=== PATIENT | male | born 1970 | race Two or more races ===

== ENCOUNTER 2017-01-16 19:07 | Emergency (ER) | payer MEDICAID ==
[~2017-01-16] VITALS: Ht 195.6 cm; Wt 129.3 kg
[~2017-01-16 19:07] MED LIST: ASPI81TA2 PO; FENO200C PO; METF500T4 PO; NEBI10TA2 PO; VALS80TA26 PO
[2017-01-16 19:32] VITALS: BP 171/100
== END 2017-01-16 20:51 | disposition home or self-care (01) ==
LOC: ER 19:08
DX: S91.332A Puncture wound without foreign body, left foot, initial encounter (principal); I10 Essential (primary) hypertension; E11.9 Type 2 diabetes mellitus without complications; Z79.82 Long term (current) use of aspirin; Z79.84 Long term (current) use of oral hypoglycemic drugs; W22.8XXA Striking against or struck by other objects, initial encounter; Y93.89 Activity, other specified; Y92.89 Other specified places as the place of occurrence of the external cause; Y99.8 Other external cause status
CPT/HCPCS: 73630; 99284; A4606; Z7610

== ENCOUNTER 2017-03-27 23:58 | Emergency (ER) | payer MEDICAID ==
[~2017-03-27] VITALS: Ht 185.4 cm; Wt 113.4 kg
[~2017-03-27 23:58] MED LIST changes: +ASPI-1169 PO; -ASPI81TA2 PO
[2017-03-28] MEDS ORDERED: ADENOSINE 6 MG/2 ML VIAL ONE (00:04)
--- NOTE | 2017-03-28 00:10 | NUR ---
TO BED 1 AMBULATORY C/O "MY HEART IS RACING". PT AAOX4 NO ACUTE DISTRESS NOTED, RESP EVEN AND UNLABORED. PLACE PT ON CARDIAC MONITORING HR-160'S, CONTINUOUS POX. ER MD AT BEDSIDE TO EVAL PT WITH ORDERS RECEIVED. SKIN WARM NONDIAPHORETIC. PT DENIES PAIN OR DISCOMFORT AT THIS TIME.
--- NOTE | 2017-03-28 00:10 | NUR ---
STARTED SL 16G TO [facility], BLOOD DRAWN AND SENT TO LAB.
--- NOTE | 2017-03-28 00:17 | NUR ---
PT SELF CONVERTED TO NSR ON THE . ER AWARE.
[2017-03-28 00:19] LABS: BASOPHILS # (AUTO) 0.1 /CMM (0.0-0.2); BASOPHILS % (AUTO) 0.5 % (0.0-2.0); EOSINOPHILS # (AUTO) 0.3 /CMM (0.0-0.7); EOSINOPHILS % (AUTO) 2.6 % (0.0-6.0); HEMATOCRIT 47 % (39-51); HEMOGLOBIN 15.6 g/dL (13.5-17.5); LYMPHOCYTES # (AUTO) 3.6 /CMM (0.8-4.8); LYMPHOCYTES % (AUTO) 35.3 % (20.0-44.0); MEAN CORPUSCULAR HEMOGLOBIN 29 PG (26.0-33.0); MEAN CORPUSCULAR HGB CONC 33 g/dl (31.0-36.0); MEAN CORPUSCULAR VOLUME 87 fL (80-96); MONOCYTES # (AUTO) 0.6 /CMM (0.1-1.30); MONOCYTES % (AUTO) 6.2 % (2.0-12.0); NEUTROPHILS # (AUTO) 5.7 /CMM (1.8-8.9); NEUTROPHILS % (AUTO) 55.4 % (43.0-81.0); PLATELET COUNT (AUTO) 257 /CMM (150-450); RDW COEFFICIENT OF VARIATION 12.1 (11.5-15.0); RED BLOOD CELL COUNT(AUTO) 5.37 MIL/uL (4.5-6.0); WHITE BLOOD COUNT (AUTO) 10.3 K/uL (4.3-11.0)
[2017-03-28 00:30] LABS: CALCIUM, SERUM 9.5 mg/dL (8.5-10.1)
--- NOTE | 2017-03-28 00:46 | NUR ---
pt resting quietly no acute distress noted, resp even and unlabored. call light within reach. pending disposition.
--- NOTE | 2017-03-28 01:23 | NUR ---
er md at bedside talking to pt regarding lab results.
[2017-03-28 01:30] VITALS: BP 153/91
--- NOTE | 2017-03-28 01:38 | NUR ---
IV removed. Catheter intact and site benign. Pressure and 4x4 applied to site. No bleeding noted. Patient discharged to home in stable condition. Written and verbal after care instructions given. Patient verbalizes understanding of instruction. ambulatory with a steady gait
== END 2017-03-28 01:39 | disposition home or self-care (01) ==
LOC: ER 03-28 00:03
DX: I47.1 Supraventricular tachycardia (principal); E11.9 Type 2 diabetes mellitus without complications; I10 Essential (primary) hypertension; F10.10 Alcohol abuse, uncomplicated; F17.200 Nicotine dependence, unspecified, uncomplicated; Z79.82 Long term (current) use of aspirin
CPT/HCPCS: 36415; 80048; 83735; 85025; 93005; 99285; A4606; Z7610; J0153

== ENCOUNTER 2017-05-15 23:00 | Emergency (ER) | payer MEDICAID ==
[~2017-05-15] VITALS: Ht 177.8 cm; Wt 133.8 kg
--- NOTE | 2017-05-15 23:01 | NUR ---
PT TO ER BED 5. PT BIB FAMILY, PT C/O CP AND PALPITATIONS X 20 MINUTES. PT SVT ON MONITOR AT 149 HR. PT PLACED IN GOWN AND ON CAUL PULLER. RESP EVEN UNLABORED/SKIN WARM AND DRY/DENIES N-V-D/AFEBRILE/AOX4. DR SPICER AT THE BEDSIDE FOPR EVAL. EMT AT BEDSIDE FOR EKG.
[2017-05-15] MEDS ORDERED: ADENOSINE 6 MG/2 ML VIAL ONE (23:08)
--- NOTE | 2017-05-15 23:12 | NUR ---
Adenosine administered lac iv#[address] vela at bedside. Pt converted to NSR.
--- NOTE | 2017-05-15 23:23 | NUR ---
LAB AT BEDSIDE TO DRAW.
[2017-05-15 23:29] LABS: BASOPHILS % (AUTO) 0.2 % (0.0-2.0); EOSINOPHILS # (AUTO) 0.2 /CMM (0.0-0.7); EOSINOPHILS % (AUTO) 2.2 % (0.0-6.0); HEMATOCRIT 40 % (39-51); LYMPHOCYTES # (AUTO) 2.4 /CMM (0.8-4.8); LYMPHOCYTES % (AUTO) 34.1 % (20.0-44.0); MEAN CORPUSCULAR HEMOGLOBIN 30 PG (26.0-33.0); MEAN CORPUSCULAR HGB CONC 35 g/dl (31.0-36.0); MEAN CORPUSCULAR VOLUME 87 fL (80-96); MONOCYTES # (AUTO) 0.3 /CMM (0.1-1.30); MONOCYTES % (AUTO) 4.8 % (2.0-12.0); NEUTROPHILS # (AUTO) 4.1 /CMM (1.8-8.9); NEUTROPHILS % (AUTO) 58.7 % (43.0-81.0); PLATELET COUNT (AUTO) 179 /CMM (150-450); RDW COEFFICIENT OF VARIATION 11.9 (11.5-15.0); RED BLOOD CELL COUNT(AUTO) 4.59 MIL/uL (4.5-6.0)
[2017-05-15] MEDS ORDERED: IV NS 0.9% 1,000 ML BAG IV ONE (23:30)
[2017-05-15] MEDS ORDERED: ADENOSINE 6 MG/2 ML VIAL IVP ONE (23:30)
--- NOTE | 2017-05-15 23:40 | NUR ---
XRAY AT BEDSIDE.
[2017-05-15 23:41] LABS: CALCIUM, SERUM 8.5 mg/dL (8.5-10.1); CARBON DIOXIDE 24 mmol/L (21-32); CHLORIDE 105 mmol/L (98-107); GLUCOSE 304 mg/dL (74-106); POTASSIUM 3.7 mmol/L (3.5-5.1); SODIUM SERUM 139 mmol/L (136-145); UREA NITROGEN, BLOOD 14 mg/dL (7-18)
[2017-05-15 23:46] LABS: INR 0.99 (0.87-1.13)
[2017-05-15 23:50] LABS: TROPONIN I < 0.017 ng/mL (0.00-0.056)
--- NOTE | 2017-05-16 00:10 | NUR ---
PT CONTINUES TO REMAIN STABLE IN NSR ON FOLDER MACHINE. HR 95.
--- NOTE | 2017-05-16 00:32 | NUR ---
IV removed. Catheter intact and site benign. Pressure and 4x4 applied to site. No bleeding noted. Patient discharged to home in stable condition. Written and verbal after care instructions given. Patient verbalizes understanding of instruction. Patient ambulatory with a steady gait.
[2017-05-16 00:33] VITALS: BP 141/90
== END 2017-05-16 00:34 | disposition home or self-care (01) ==
LOC: ER 23:08
DX: I47.1 Supraventricular tachycardia (principal); E11.9 Type 2 diabetes mellitus without complications; I10 Essential (primary) hypertension; Z79.82 Long term (current) use of aspirin
CPT/HCPCS: 36415; 71045-TC; 80048-TC; 84484-TC; 85025-TC; 85730-TC; A4606; J0153; Z7610

== ENCOUNTER 2017-10-20 02:26 | Emergency (ER) | payer MEDICAID ==
[~2017-10-20] VITALS: Ht 193 cm; Wt 117.9 kg
[~2017-10-20 02:26] MED LIST changes: -METF500T4 PO; +METF500T6 PO; -VALS80TA26 PO; +VALS80TA31 PO
--- NOTE | 2017-10-20 02:42 | NUR ---
XRAY AT BEDSIDE
--- NOTE | 2017-10-20 02:49 | NUR ---
PT AA/OX4 , ANXIOUS, COMPLAINING OF LT SIDED CHEST PAIN X3 HOURS. RADIATES TO BACK. PRESSURE TYPE OF SENSATION. 7/10 PAIN. NAUSEA PRESENT WITH NO VOMITING. SKINS PINK WARM AND DRY. NO S/S OF SOB. VSS. AWAITING MD EVAL/ ORDERS.
[2017-10-20] MEDS ORDERED: ASPIRIN EC 81 MG TABLET.DR PO ONE (02:58)
[2017-10-20] MEDS ORDERED: ASPIRIN 81 MG TAB.CHEW PO ONE (03:00)
[2017-10-20 03:01] LABS: HEMATOCRIT 40 % (39-51); HEMOGLOBIN 13.8 g/dL (13.5-17.5); MEAN CORPUSCULAR HEMOGLOBIN 31 PG (26.0-33.0); MEAN CORPUSCULAR HGB CONC 34 g/dl (31.0-36.0); MEAN CORPUSCULAR VOLUME 90 fL (80-96); MONOCYTES % (AUTO) 5.2 % (2.0-12.0); NEUTROPHILS % (AUTO) 54.2 % (43.0-81.0); PLATELET COUNT (AUTO) 214 /CMM (150-450); RDW COEFFICIENT OF VARIATION 12.3 (11.5-15.0); RED BLOOD CELL COUNT(AUTO) 4.46 MIL/uL (4.5-6.0); WHITE BLOOD COUNT (AUTO) 8.9 K/uL (4.3-11.0)
[2017-10-20 03:02] LABS: BASOPHILS % (AUTO) 0.7 % (0.0-2.0)
[2017-10-20 03:17] LABS: INR 0.96 (0.87-1.13)
[2017-10-20 03:36] LABS: CARBON DIOXIDE 26 mmol/L (21-32); CHLORIDE 101 mmol/L (98-107); CREATININE 1.1 mg/dL (0.6-1.3); GLUCOSE 237 mg/dL (74-106); POTASSIUM 3.8 mmol/L (3.5-5.1); SODIUM SERUM 138 mmol/L (136-145); UREA NITROGEN, BLOOD 19 mg/dL (7-18)
[2017-10-20 03:46] LABS: TROPONIN I < 0.017 ng/mL (0.00-0.056)
--- NOTE | 2017-10-20 04:00 | NUR ---
PT RESTING COMFORTABLY. NAD. VSS
[2017-10-20 04:40] VITALS: BP 112/85
--- NOTE | 2017-10-20 04:42 | NUR ---
Patient discharged to home in stable condition. Written and verbal after care instructions given. Patient verbalizes understanding of instruction. IV removed. Catheter intact and site benign. Pressure and 4x4 applied to site. No bleeding noted. PT AMBULATED WITH STEADY GAIT UPON DC.
== END 2017-10-20 04:41 | disposition home or self-care (01) ==
LOC: ER 02:29
DX: R00.2 Palpitations (principal); I10 Essential (primary) hypertension; E11.9 Type 2 diabetes mellitus without complications; Z98.890 Other specified postprocedural states; Z79.84 Long term (current) use of oral hypoglycemic drugs; Z79.82 Long term (current) use of aspirin; Z79.899 Other long term (current) drug therapy; Z86.79 Personal history of other diseases of the circulatory system
CPT/HCPCS: 36415; 71045; 80048; 84484; 85025; 85730; 93005; 99285; A4606; Z7610

== ENCOUNTER 2019-04-17 02:49 | Emergency (ER) | payer OTHER ==
[~2019-04-17] VITALS: Ht 175.3 cm; Wt 130.6 kg
[~2019-04-17 02:49] MED LIST changes: +METF-440 PO; -METF500T6 PO
--- NOTE | 2019-04-17 03:03 | NUR ---
pt came to er w/ c/o chest pain. pt states that he has been having this pain since 2x months. pain worsen last 2 days when lying down. aaox4. no sob. breathing evenly and unlabored. connected to surveillance system monitor.
[2019-04-17] MEDS ORDERED: MORPHINE SULFATE INJ 4 MG/ML DISP.SYRIN ONE ×2 (03:06→03:10)
--- NOTE | 2019-04-17 03:10 | NUR ---
seen and examined by
[2019-04-17 03:16] LABS: BASOPHILS # (AUTO) 0.1 /CMM (0.0-0.2); BASOPHILS % (AUTO) 0.6 % (0.0-2.0); EOSINOPHILS % (AUTO) 2.2 % (0.0-6.0); HEMATOCRIT 43 % (39-51); HEMOGLOBIN 14.8 g/dL (13.5-17.5); LYMPHOCYTES % (AUTO) 34.3 % (20.0-44.0); MEAN CORPUSCULAR HGB CONC 34 g/dl (31.0-36.0); MEAN CORPUSCULAR VOLUME 88 fL (80-96); MONOCYTES # (AUTO) 0.5 /CMM (0.1-1.30); MONOCYTES % (AUTO) 5.7 % (2.0-12.0); NEUTROPHILS % (AUTO) 57.2 % (43.0-81.0); PLATELET COUNT (AUTO) 209 /CMM (150-450); RED BLOOD CELL COUNT(AUTO) 4.93 MIL/uL (4.5-6.0); WHITE BLOOD COUNT (AUTO) 8.7 K/uL (4.3-11.0)
[2019-04-17 03:24] LABS: CALCIUM, SERUM 8.8 mg/dL (8.5-10.1); CARBON DIOXIDE 28 mmol/L (21-32); CHLORIDE 101 mmol/L (98-107); GLUCOSE 245 mg/dL (74-106); POTASSIUM 3.9 mmol/L (3.5-5.1); SODIUM SERUM 138 mmol/L (136-145); UREA NITROGEN, BLOOD 14 mg/dL (7-18)
[2019-04-17] MEDS ORDERED: MORPHINE SULFATE INJ 2 MG/ML DISP.SYRIN IV ONE (03:30)
--- NOTE | 2019-04-17 04:51 | NUR ---
IV removed. Catheter intact and site benign. Pressure and 4x4 applied to site. No bleeding noted. Patient discharged to home in stable condition. Written and verbal after care instructions given. Patient verbalizes understanding of instruction.
[2019-04-17 04:52] VITALS: BP 139/78
== END 2019-04-17 04:53 | disposition home or self-care (01) ==
LOC: ER 02:52
DX: R07.89 Other chest pain (principal); I10 Essential (primary) hypertension; E11.9 Type 2 diabetes mellitus without complications; F17.200 Nicotine dependence, unspecified, uncomplicated; Z98.890 Other specified postprocedural states; Z79.84 Long term (current) use of oral hypoglycemic drugs; Z79.82 Long term (current) use of aspirin; Z79.899 Other long term (current) drug therapy
CPT/HCPCS: 36415; 71045; 80048; 84484; 85025; 93005; 96374; 99284; 99406; J2270

== ENCOUNTER 2019-08-04 17:27 | Emergency (ER) | payer OTHER ==
[~2019-08-04] VITALS: Ht 193 cm; Wt 130.2 kg
--- NOTE | 2019-08-04 17:32 | NUR ---
PT [id number] FROM HOME FOR SVT. CONVERTED S/P CARDIOVERSION BY ADENOSINE, PT IS AAOX4, NOT IN RESPIRATORY DISTRESS, HOOKED TO COLLECTIONS REP, KEPT RESTED AND COMFORTABLE, WILL CONTINUE TO MONITOR.
--- NOTE | 2019-08-04 17:35 | NUR ---
AT BEDSIDE FOR EVAL.
--- NOTE | 2019-08-04 17:45 | NUR ---
ARPIT DRUMMOND AT BEDSIDE FOR EKG.
--- NOTE | 2019-08-04 17:45 | NUR ---
BLOOD DRAWN AND SENT TO LAB
[2019-08-04] MEDS ORDERED: METOPROLOL TARTRATE 50 MG TABLET ONE (17:51)
[2019-08-04 17:52] LABS: BASOPHILS % (AUTO) 0.5 % (0.0-2.0); EOSINOPHILS % (AUTO) 1.3 % (0.0-6.0); HEMATOCRIT 45 % (39-51); HEMOGLOBIN 15.3 g/dL (13.5-17.5); LYMPHOCYTES % (AUTO) 21.4 % (20.0-44.0); MEAN CORPUSCULAR HGB CONC 34 g/dl (31.0-36.0); MEAN CORPUSCULAR VOLUME 88 fL (80-96); MONOCYTES # (AUTO) 0.6 /CMM (0.1-1.30); MONOCYTES % (AUTO) 6.5 % (2.0-12.0); NEUTROPHILS # (AUTO) 6.7 /CMM (1.8-8.9); NEUTROPHILS % (AUTO) 70.3 % (43.0-81.0); PLATELET COUNT (AUTO) 201 /CMM (150-450); RED BLOOD CELL COUNT(AUTO) 5.11 MIL/uL (4.5-6.0); WHITE BLOOD COUNT (AUTO) 9.6 K/uL (4.3-11.0)
[2019-08-04] MEDS ORDERED: METOPROLOL SUCCINATE 50 MG TAB.SR.24H PO SCH (18:00)
--- NOTE | 2019-08-04 18:00 | NUR ---
[employer] AT BEDSIDE FOR XRAY.
[2019-08-04 18:08] LABS: CALCIUM, SERUM 9.3 mg/dL (8.5-10.1); CARBON DIOXIDE 24 mmol/L (21-32); CHLORIDE 99 mmol/L (98-107); CREATININE 1.7 mg/dL (0.6-1.3); GLUCOSE 202 mg/dL (74-106); POTASSIUM 4.4 mmol/L (3.5-5.1); SODIUM SERUM 136 mmol/L (136-145); UREA NITROGEN, BLOOD 19 mg/dL (7-18)
[2019-08-04 18:52] VITALS: BP 151/104
== END 2019-08-04 19:20 | disposition home or self-care (01) ==
LOC: ER 17:29
DX: I47.1 Supraventricular tachycardia (principal); R00.2 Palpitations; I10 Essential (primary) hypertension; Z98.890 Other specified postprocedural states; Z79.899 Other long term (current) drug therapy; Z79.82 Long term (current) use of aspirin
CPT/HCPCS: 36415; 71045-TC; 80048-TC; 84484-TC; 85025-TC

== ENCOUNTER 2022-08-24 10:13 | Emergency (ER) | payer OTHER ==
[~2022-08-24] VITALS: Ht 175.3 cm; Wt 119.7 kg
--- NOTE | 2022-08-24 10:15 | NUR ---
BIBS FOR CHEST PAIN. PATIENT IN DISTRESS, NOT ABLE TO ANSWER A/O QUESTIONS AT THIS TIME, TOLERATING WELL ON ROOM AIR, PRESENT AT BEDSIDE
--- NOTE | 2022-08-24 10:28 | NUR ---
IV INSERTED BLD DRAWN AND SENT [facility]
[2022-08-24] MEDS ORDERED: IV NS 0.9% 1,000 ML BAG IV ONE (10:30)
[2022-08-24] MEDS ORDERED: ADENOSINE 6 MG/2 ML VIAL ONE (10:36)
--- NOTE | 2022-08-24 10:40 | NUR ---
Consent form for cardioversion signed by patient and placed in chart. Benefits and risks of procedure explained. Patient's verbalized understanding.
--- NOTE | 2022-08-24 10:41 | NUR ---
6 mg adenosive IV push given as ordered.
[2022-08-24] MEDS ORDERED: ADENOSINE 6 MG/2 ML VIAL IVP ONE (11:00)
[2022-08-24 11:03] LABS: CALCIUM, SERUM 9.4 mg/dL (8.5-10.1); CARBON DIOXIDE 27 mmol/L (21-32); CHLORIDE 102 mmol/L (98-107); CREATININE 0.9 mg/dL (0.6-1.3); GLUCOSE 220 mg/dL (74-106); SODIUM SERUM 138 mmol/L (136-145); UREA NITROGEN, BLOOD 13 mg/dL (7-18)
[2022-08-24 11:22] LABS: BASOPHILS # (AUTO) 0.1 K/uL (0.0-0.2); BASOPHILS % (AUTO) 0.7 % (0.0-2.0); EOSINOPHILS % (AUTO) 4.4 % (0.0-6.0); HEMATOCRIT 46 % (39-51); HEMOGLOBIN 15.1 g/dL (13.5-17.5); LYMPHOCYTES # (AUTO) 2.4 K/uL (0.8-4.8); LYMPHOCYTES % (AUTO) 28.5 % (20.0-44.0); MEAN CORPUSCULAR HGB CONC 33 g/dl (31.0-36.0); MEAN CORPUSCULAR VOLUME 90 fL (80-96); MONOCYTES # (AUTO) 0.6 K/uL (0.1-1.30); NEUTROPHILS % (AUTO) 59.4 % (43.0-81.0); PLATELET COUNT (AUTO) 269 K/uL (150-450); RED BLOOD CELL COUNT(AUTO) 5.05 MIL/uL (4.5-6.0); WHITE BLOOD COUNT (AUTO) 8.4 K/uL (4.3-11.0)
[2022-08-24] MEDS ORDERED: DILTIAZEM HCL CD 180 MG ONE ×2 (11:27→12:16)
[2022-08-24] MEDS ORDERED: DILTIAZEM HCL CD 240 MG PO SCH (11:30)
[2022-08-24] MEDS ORDERED: ACETAMINOPHEN 325 MG TABLET PO ONE (11:30)
[2022-08-24] MEDS ORDERED: ACETAMINOPHEN ES 500 MG TABLET ONE (11:34)
[2022-08-24] MEDS ORDERED: ASPIRIN 325 MG TABLET ONE (14:59)
[2022-08-24] MEDS ORDERED: ASPIRIN 81 MG TAB.CHEW PO ONE (15:00)
[2022-08-24] MEDS ORDERED: ASPIRIN 81 MG TAB.CHEW ONE (15:01)
--- NOTE | 2022-08-24 15:05 | NUR ---
Patient does not wish to proceed with medical care recommended by Dr. Gibson. Patient given information related to possible complications, up to and including , which could occur as a result of leaving the hospital at this time. Patient verbalizes understanding of risks involved due to leaving against medical advice. Patient has signed AMA form.
--- NOTE | 2022-08-24 15:05 | NUR ---
IV removed. Catheter intact and site benign. Pressure and 4x4 applied to site. No bleeding noted.
[2022-08-24 15:06] VITALS: BP 132/72
== END 2022-08-24 15:31 | disposition left against medical advice (07) ==
LOC: ER 10:22
DX: I47.1 Supraventricular tachycardia (principal); R07.89 Other chest pain; I10 Essential (primary) hypertension; R77.8 Other specified abnormalities of plasma proteins; E11.9 Type 2 diabetes mellitus without complications; Z98.890 Other specified postprocedural states; F17.200 Nicotine dependence, unspecified, uncomplicated; Z79.899 Other long term (current) drug therapy; Z79.82 Long term (current) use of aspirin
CPT/HCPCS: 99285; 96374; 71045; 96361; 93005 ×2; 85025; 80048; 83735; 36415; 84484 ×2; 83880; J0153; J7030